=== PATIENT | male | born 1965 | race Caucasian/White ===

== ENCOUNTER 2017-07-20 13:01 | Emergency (ER) | payer OTHER ==
[~2017-07-20] VITALS: Ht 177.8 cm; Wt 96.0 kg
[2017-07-20 13:17] VITALS: Ht 177.8 cm; Wt 96.0 kg
[2017-07-20] MEDS ORDERED: KETOROLAC 15 MG INJ IV STA (13:49)
[2017-07-20] MEDS ORDERED: ONDANSETRON 4 MG INJ IV STA (13:49)
[2017-07-20] MEDS ORDERED: SOD CHLORIDE 0.9% 1,000 ML IV STA (13:49)
[2017-07-20] MEDS ORDERED: PROPOFOL 100 ML IV ONE (14:00)
[2017-07-20] MEDS ORDERED: FENTAnyl 50 MCG/ML VIAL IV ONE (14:00)
[2017-07-20] MEDS ORDERED: NEOMYC/POLYMYX/BACIT 30 GM OINT TOP ONE (14:00)
[2017-07-20] MEDS ORDERED: LIDOCAINE 1% (MDV) 20 ML INJ SC ONE (14:00)
[2017-07-20 14:07] LABS: BASOPHILS % 0.4 % (0.0-2.0); EOSINOPHILS # 0.1 10^3/ul (0.0-0.5); HEMATOCRIT 46.9 % (42.0-52.0); HEMOGLOBIN 15.5 g/dl (14.0-18.0); LYMPHOCYTES # 2.1 10^3/ul (0.8-2.9); MEAN CORPUSCULAR HEMOGLOBIN 30.6 pg (29.0-33.0); MEAN CORPUSCULAR VOLUME 92.7 fl (82.0-101.0); MEAN PLATELET VOLUME 10.2 fl (7.4-10.4); MONOCYTE # 0.6 10^3/ul (0.3-0.9); MONOCYTES % 5.7 % (0.0-11.0); NEUTROPHIL # 7.2 10^3/ul (1.6-7.5); NEUTROPHILS % 71.6 % (39.0-77.0); PLATELET COUNT 210 10^3/UL (140-415); RED BLOOD COUNT 5.06 10^6/ul (4.70-6.10); RED CELL DISTRIBUTION WIDTH 12.6 % (11.5-14.5)
[2017-07-20 14:29] LABS: INR 0.85; PROTIME 11.6 Sec (12.2-14.2); PT RATIO 0.9
[2017-07-20 14:32] LABS: CALCIUM 9.1 mg/dl (8.4-10.2); CREATININE 0.98 mg/dl (0.61-1.24); POTASSIUM 4.5 mmol/L (3.5-5.1)
--- NOTE | 2017-07-20 14:58 | RADRPT ---
PROCEDURE: XR Wrist. CLINICAL INDICATION: Fall TECHNIQUE: AP, lateral and oblique views of the left wrist were performed. COMPARISON: No prior studies are available for comparison. FINDINGS: There are comminuted fractures of the distal radius and ulna noting volar angulation and displacemen t of the distal fragments. Also mild radial angulation of the distal ulnar fragment. The carpal bone s otherwise appear well-aligned with the radius and appear within normal limits. There is marked sof t tissue swelling. IMPRESSION: 1. Distal radial and ulnar fractures, as above. RPTAT: UU .Mark Blake MD, MD Date Time Electronically viewed and signed by .Mark Blake MD, MD on 07/20/2017 14:58 .d/
[2017-07-20] MEDS ORDERED: OXYC-279 PO (15:59)
[2017-07-20] MEDS ORDERED: IBUP-1542 PO (15:59)
[2017-07-20] MEDS ORDERED: CEPH-443 PO (15:59)
[2017-07-20 16:39] VITALS: BP 120/68; PULSE 78; RESP 18; TEMP 98.1
--- NOTE | 2017-07-20 16:55 | RADRPT ---
PROCEDURE: XR Wrist. CLINICAL INDICATION: Reduction TECHNIQUE: AP, lateral and oblique views of the left wrist were performed. COMPARISON: Radiographs of the same day FINDINGS: There has been interval placement of an overlying cast. There is improved alignment of the distal ul na noting mild volar residual angulation. There is persistent volar displacement and angulation of t he distal radial fragment by a shaft's width. The carpal bones are well-aligned with the distal radi al articular surface. IMPRESSION: 1. Persistently volarly displaced distal radial fracture fragment. 2. Improved alignment of the distal ulna. 3. Overlying cast obscures osseous detail. RPTAT: UU .Mark Blake MD, Date Time Electronically viewed and signed by .Mark Blake MD, on 07/20/2017 16:55 .d/
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
== END 2017-07-20 16:40 | disposition home or self-care (01) ==
LOC: E/R 13:01
DX: S52.611A Displaced fracture of right ulna styloid process, initial encounter for closed fracture (principal); R07.9 Chest pain, unspecified; V00.831A Fall from motorized mobility scooter, initial encounter
CPT/HCPCS: 25565; 36415; 73110; 80048; 85025; 85610; 94770; 96374; 96375; J1885; J2405; J3010; J7030; Z7502; Z7610

== ENCOUNTER 2017-08-01 12:59 | Day surgery (SDC) | payer OTHER ==
[~2017-08-01] VITALS: Ht 180.3 cm; Wt 95.0 kg
[~2017-08-01 12:59] MED LIST: CEPH-443 PO; IBUP-1542 PO; OXYC-279 PO
[2017-08-01 15:42] VITALS: Ht 180.3 cm; Wt 95.0 kg
[2017-08-01 15:49] VITALS: BP 124/84; PULSE 102; RESP 20
[2017-08-01 16:12] LABS: BASOPHILS % 0.4 % (0.0-2.0); EOSINOPHILS # 0.1 10^3/ul (0.0-0.5); EOSINOPHILS % 0.9 % (0.0-7.0); HEMOGLOBIN 14.6 g/dl (14.0-18.0); LYMPHOCYTES # 2.2 10^3/ul (0.8-2.9); LYMPHOCYTES % 22.7 % (15.0-51.0); MEAN CORPUSCULAR HEMOGLOBIN 30.7 pg (29.0-33.0); MEAN CORPUSCULAR VOLUME 90.5 fl (82.0-101.0); MEAN PLATELET VOLUME 9.9 fl (7.4-10.4); MONOCYTE # 0.6 10^3/ul (0.3-0.9); MONOCYTES % 6.1 % (0.0-11.0); NEUTROPHIL # 6.7 10^3/ul (1.6-7.5); NEUTROPHILS % 69.6 % (39.0-77.0); PLATELET COUNT 306 10^3/UL (140-415); RED BLOOD COUNT 4.75 10^6/ul (4.70-6.10); RED CELL DISTRIBUTION WIDTH 12.5 % (11.5-14.5); WHITE BLOOD COUNT 9.6 10^3/ul (4.8-10.8)
--- NOTE | 2017-08-02 22:41 | RADRPT ---
Vent Rate: 88 bpm RR Interval: 0 msec FL Interval: 148 msec QRS Duration: 94 msec QT Interval: 400 msec QTC Interval: 484 msec P-R-T Buhl: 58 - -61 - 41 degrees Normal sinus rhythm Left anterior fascicular block Septal infarct , age undetermined Abnormal ECG Electronically Signed By: Paul Linda [id number]
[2017-08-03] MEDS ORDERED: FENTAnyl 50 MCG/ML VIAL ONE (13:17)
[2017-08-03] MEDS ORDERED: MIDAZOLAM 1 MG/ML 2 ML INJ ONE (13:17)
[2017-08-03] MEDS ORDERED: PROPOFOL 20 ML ONE (13:17)
[2017-08-03] MEDS ORDERED: LIDOCAINE 2% (SDV) 5 ML INJ ONE (13:17)
[2017-08-03] MEDS ORDERED: ROPIVACAINE 0.5 % 30 ML VIAL ONE (13:20)
[2017-08-03] MEDS ORDERED: ACETAMINOPHEN 1000MG/100ML IV 100 ML ONE (16:49)
[2017-08-03] MEDS ORDERED: CEFAZOLIN 1 GM INJ ONE (16:49)
[2017-08-03] MEDS ORDERED: PHENYLephrine (100 MCG/ML) 5ML SYG ONE (17:06)
[2017-08-03] MEDS ORDERED: EPHEDrine SULFATE 50 MG/5 ML SYG ONE (17:11)
[2017-08-03] MEDS ORDERED: ONDANSETRON 4 MG INJ ONE (17:27)
[2017-08-03] MEDS ORDERED: METOCLOPRAMIDE 10 MG INJ ONE (17:27)
[2017-08-03] MEDS ORDERED: KETOROLAC 30 MG INJ ONE (18:07)
[2017-08-03] MEDS ORDERED: HYDROmorphONE 2 MG/ML SYG ONE (18:27)
== END 2017-08-01 16:47 | disposition home or self-care (01) ==
LOC: SDS 12:59
PROVIDERS: ATTEND Orthopaedic Surgery Hand Surgery
DX: S52.502A Unspecified fracture of the lower end of left radius, initial encounter for closed fracture (principal); Z53.9 Procedure and treatment not carried out, unspecified reason; X58.XXXA Exposure to other specified factors, initial encounter; Y93.9 Activity, unspecified; Y99.9 Unspecified external cause status; Y92.9 Unspecified place or not applicable
CPT/HCPCS: 85025; 93005

== ENCOUNTER 2017-08-03 12:56 | Day surgery (SDC) | payer OTHER ==
[~2017-08-03] VITALS: Ht 179.1 cm; Wt 95.8 kg
[2017-08-03] VITALS (16 sets, daily range): BP systolic 102–121; BP diastolic 56–77; PULSE 86–99; RESP 16–18; Ht 179.1 cm; Wt 95.8 kg
[2017-08-03] MEDS ORDERED: FENTAnyl 50 MCG/ML VIAL IV PRN (13:30)
[2017-08-03] MEDS ORDERED: ONDANSETRON 4 MG INJ IV PRN (13:30)
[2017-08-03] MEDS ORDERED: OXYCODONE/ACETAMINOPHEN (5/325) TAB PO PRN ×2 (13:30)
[2017-08-03] MEDS ORDERED: HYDROmorphONE (0.2 MG/ML) 10ML SYG IV PRN ×2 (13:30)
[2017-08-03] MEDS ORDERED: DIPHENHYDRAMINE 50 MG INJ IV PRN (13:30)
[2017-08-03] MEDS ORDERED: MEPERIDINE 25 MG INJ IV PRN (13:30)
[2017-08-03] MEDS ORDERED: PROCHLORPERAZINE 10 MG INJ IV PRN (13:30)
--- NOTE | 2017-08-03 15:39 | RADRPT ---
PROCEDURE: XR Chest. CLINICAL INDICATION: Preoperative. TECHNIQUE: Single frontal view. COMPARISON: None. FINDINGS: The lungs are clear. The heart size is normal. There is no pleural effusion. There is no pneumothorax. IMPRESSION: 1. Normal chest radiograph. RPTAT: QQ .Sumeet Álvarez MD, Date Time Electronically viewed and signed by .Sumeet Álvarez MD, on 08/03/2017 15:39 .R/
--- NOTE | 2017-08-03 16:08 | HPN ---
Date/Time of Note Date/Time of Note DATE: 08/03/17 TIME: 16:08 Interval H&P Admission Note Pt. seen H&P reviewed: No system changes ZANDRA AREVALO MD Aug 03, 2017 16:08
[2017-08-03] MEDS ORDERED: BUPIVACAINE 0.5%/EPI (SDV) 30 ML INJ ONE (16:11)
[2017-08-03] MEDS ORDERED: BUPIVACAINE 0.25% (MPF) 30 ML INJ ONE (16:11)
--- NOTE | 2017-08-03 16:11 | SIPON ---
Date/Time of Note Date/Time of Note DATE: 08/03/17 TIME: 16:09 Operative Report Preoperative Diagnosis left distal radius and ulnar fractures Postoperative Diagnosis same Operation/Procedure Performed orif left distal radius and ulna fractures Surgeon jo assistant hall director staff Anesthesia: general Estimated blood loss: minimal Transfusion Required none Specimen none Grafts/Implants none Complications none ZANDRA AREVALO MD Aug 03, 2017 16:11
--- NOTE | 2017-08-03 16:11 | SIPON ---
Date/Time of Note Date/Time of Note DATE: 08/03/17 TIME: 16:09 Operative Report Preoperative Diagnosis left distal radius and ulnar fractures Postoperative Diagnosis same Operation/Procedure Performed orif left distal radius and ulna fractures Surgeon jo assistant store manager sales staff Anesthesia: general Estimated blood loss: minimal Transfusion Required none Specimen none Grafts/Implants none Complications none ZANDRA AREVALO MD Aug 03, 2017 16:11
--- NOTE | 2017-08-03 16:11 | SIPON ---
Date/Time of Note Date/Time of Note DATE: 08/03/17 TIME: 16:09 Operative Report Preoperative Diagnosis left distal radius and ulnar fractures Postoperative Diagnosis same Operation/Procedure Performed orif left distal radius and ulna fractures Surgeon jo clothing sales assistant staff Anesthesia: general Estimated blood loss: minimal Transfusion Required none Specimen none Grafts/Implants none Complications none ZANDRA AREVALO MD Aug 03, 2017 16:11
[2017-08-03] MEDS ORDERED: POLYMYXIN/BACITRACIN 1L IRRIG ONE (17:14)
--- NOTE | 2017-08-03 22:08 | RADRPT ---
PROCEDURE: Intraoperative imaging of the left wrist with fluoroscopy. CLINICAL INDICATION: Left wrist pain. Intraoperative. TECHNIQUE: 15 images of the left wrist were obtained in the operating room with an image intensifi er. No radiologist was in attendance. Fluoroscopy time is 36 seconds. COMPARISON: Left wrist radiographs dated 07/20/2017. FINDINGS: Images demonstrate open reduction and internal fixation of the distal radius with a plate and multip le screws. There is also open reduction and internal fixation of the distal ulna with a plate and mu ltiple screws. IMPRESSION: 1. Intraoperative imaging of the left wrist. RPTAT: QQ .Sumeet Álvarez MD, MD Date Time Electronically viewed and signed by .Sumeet Álvarez MD, MD on 08/03/2017 22:08 .R/
--- NOTE | 2017-08-04 08:36 | OPR ---
DATE OF OPERATION: 08/03/2017 SURGEON: Terry Diaz MD PRODUCT DIRECTOR: Staff. ANESTHESIOLOGIST: Dr. Floyd ANESTHESIA: General anesthetic by the anesthesiologist, supraclavicular block by the anesthesiologist, local anesthetic by the surgeon. SURGICAL PAUSE: I reexamined the patient in the holding area, son present as witness, marked the site, confirmed the operative procedure and plan with the patient awake. INFORMED CONSENT: At the time we scheduled the operative procedure we talked to the patient about the risks and the hazards of surgery, discussing the operative mortality, wound infection, nerve injury, good result, potential complications. The patient signed the note in [place], we do not have it in Farsi, documenting that conversation. We had a family member as the bisque cleaner. Of special concern, this patient's hand was really dirty when he took the preop dressing off and we had to scrub him to get him reasonably clean. We did an extra challenging preop scrub to get him safely clean. INDICATIONS FOR THE SURGERY: The patient had a somewhat untypical injury in that he had a so-called volar Carrillo's fracture subluxed of course, of which they all do, AO classification b2 plus a distal ulnar fracture at the level of maybe 1 inch proximal to the distal end of the ulna, somewhat unusual location, more proximal with his typical, more than a simple ulnar styloid fracture. Plan: Open reduction and internal fixation of both fractures. OPERATIVE PROCEDURE: The patient taken to surgery, anesthetized as above. Sterile prep and drape performed. A standard volar flexor carpi radialis approach was made to the distal radius, pronator quad radius incised and retracted brachial radialis released. The fracture manipulated in a reduced position and held with temporary k wires. A volar fixed angle plate from [employer] which uses a Star screwdriver was applied in the standard manner, getting what appears to be a near anatomic reduction of the distal radius. No metal into the joint, no metal into the radial carpal joint, no metal into the sigmoid notch. Appropriate holiness of length. Appropriate holiness of the inclination and holiness of tilt. Subsequently that wound was closed in layers with Vicryl deep and subcuticular. Part 2: The distal ulna. We subperiosteally exposed the distal ulna through a mid ulnar approach on the side to the ulna, exposed the fracture. The best device we had available to fix the ulna was from the synthes modular hand set, the modular hand set. It was the one that seemed to fit better than anything else, it is probably a little light, somebody will probably criticize these for having a somewhat small plate but it is the one that fit the area best. We cut it to length, bent it to shape and applied it with 3 screws distally and 3 screws proximally, getting a rigid fixation of the distal ulna. Metal removal: We probably do not have to remove more than 1 in 10 of the distal radius plates; however, fixation of ulna often is irritating and we probably have to remove 65 to 70% of those. The operative time was about 1.5 hours. DISCHARGE MEDICATIONS: Hydrocodone, acetaminophen and Keflex. FOLLOWUP: Followup will be in our office in a week. We will keep him immobilized in a splint about 4 weeks and then start him on exercises. Dictated By: Terry Diaz MD /simona/javy /Document#: [id number] SHAUNA
--- NOTE | 2017-08-04 08:36 | OPR ---
DATE OF OPERATION: 08/03/2017 SURGEON: Terry Diaz MD BILL ADJUSTER: Staff. ANESTHESIOLOGIST: Dr. Floyd ANESTHESIA: General anesthetic by the anesthesiologist, supraclavicular block by the anesthesiologist, local anesthetic by the surgeon. SURGICAL PAUSE: I reexamined the patient in the holding area, son present as witness, marked the site, confirmed the operative procedure and plan with the patient awake. INFORMED CONSENT: At the time we scheduled the operative procedure we talked to the patient about the risks and the hazards of surgery, discussing the operative mortality, wound infection, nerve injury, good result, potential complications. The patient signed the note in [place], we do not have it in Farsi, documenting that conversation. We had a family member as the laborer hoisting. Of special concern, this patient's hand was really dirty when he took the preop dressing off and we had to scrub him to get him reasonably clean. We did an extra challenging preop scrub to get him safely clean. INDICATIONS FOR THE SURGERY: The patient had a somewhat untypical injury in that he had a so-called volar Carrillo's fracture subluxed of course, of which they all do, AO classification b2 plus a distal ulnar fracture at the level of maybe 1 inch proximal to the distal end of the ulna, somewhat unusual location, more proximal with his typical, more than a simple ulnar styloid fracture. Plan: Open reduction and internal fixation of both fractures. OPERATIVE PROCEDURE: The patient taken to surgery, anesthetized as above. Sterile prep and drape performed. A standard volar flexor carpi radialis approach was made to the distal radius, pronator quad radius incised and retracted brachial radialis released. The fracture manipulated in a reduced position and held with temporary k wires. A volar fixed angle plate from [employer] which uses a Star screwdriver was applied in the standard manner, getting what appears to be a near anatomic reduction of the distal radius. No metal into the joint, no metal into the radial carpal joint, no metal into the sigmoid notch. Appropriate christian of length. Appropriate christian of the inclination and christian of tilt. Subsequently that wound was closed in layers with Vicryl deep and subcuticular. Part 2: The distal ulna. We subperiosteally exposed the distal ulna through a mid ulnar approach on the side to the ulna, exposed the fracture. The best device we had available to fix the ulna was from the synthes modular hand set, the modular hand set. It was the one that seemed to fit better than anything else, it is probably a little light, somebody will probably criticize these for having a somewhat small plate but it is the one that fit the area best. We cut it to length, bent it to shape and applied it with 3 screws distally and 3 screws proximally, getting a rigid fixation of the distal ulna. Metal removal: We probably do not have to remove more than 1 in 10 of the distal radius plates; however, fixation of ulna often is irritating and we probably have to remove 65 to 70% of those. The operative time was about 1.5 hours. DISCHARGE MEDICATIONS: Hydrocodone, acetaminophen and Keflex. FOLLOWUP: Followup will be in our office in a week. We will keep him immobilized in a splint about 4 weeks and then start him on exercises. Dictated By: Terry Diaz MD /simona/javy /Document#: [id number] SHAUNA
--- NOTE | 2017-08-04 08:36 | OPR ---
DATE OF OPERATION: 08/03/2017 SURGEON: Terry Diaz MD ACCOUNT RESOLUTION EXPERT: Staff. ANESTHESIOLOGIST: Dr. Floyd ANESTHESIA: General anesthetic by the anesthesiologist, supraclavicular block by the anesthesiologist, local anesthetic by the surgeon. SURGICAL PAUSE: I reexamined the patient in the holding area, son present as witness, marked the site, confirmed the operative procedure and plan with the patient awake. INFORMED CONSENT: At the time we scheduled the operative procedure we talked to the patient about the risks and the hazards of surgery, discussing the operative mortality, wound infection, nerve injury, good result, potential complications. The patient signed the note in [place], we do not have it in Farsi, documenting that conversation. We had a family member as the aligning inspector. Of special concern, this patient's hand was really dirty when he took the preop dressing off and we had to scrub him to get him reasonably clean. We did an extra challenging preop scrub to get him safely clean. INDICATIONS FOR THE SURGERY: The patient had a somewhat untypical injury in that he had a so-called volar Carrillo's fracture subluxed of course, of which they all do, AO classification b2 plus a distal ulnar fracture at the level of maybe 1 inch proximal to the distal end of the ulna, somewhat unusual location, more proximal with his typical, more than a simple ulnar styloid fracture. Plan: Open reduction and internal fixation of both fractures. OPERATIVE PROCEDURE: The patient taken to surgery, anesthetized as above. Sterile prep and drape performed. A standard volar flexor carpi radialis approach was made to the distal radius, pronator quad radius incised and retracted brachial radialis released. The fracture manipulated in a reduced position and held with temporary k wires. A volar fixed angle plate from [employer] which uses a Star screwdriver was applied in the standard manner, getting what appears to be a near anatomic reduction of the distal radius. No metal into the joint, no metal into the radial carpal joint, no metal into the sigmoid notch. Appropriate taoist of length. Appropriate taoist of the inclination and taoist of tilt. Subsequently that wound was closed in layers with Vicryl deep and subcuticular. Part 2: The distal ulna. We subperiosteally exposed the distal ulna through a mid ulnar approach on the side to the ulna, exposed the fracture. The best device we had available to fix the ulna was from the synthes modular hand set, the modular hand set. It was the one that seemed to fit better than anything else, it is probably a little light, somebody will probably criticize these for having a somewhat small plate but it is the one that fit the area best. We cut it to length, bent it to shape and applied it with 3 screws distally and 3 screws proximally, getting a rigid fixation of the distal ulna. Metal removal: We probably do not have to remove more than 1 in 10 of the distal radius plates; however, fixation of ulna often is irritating and we probably have to remove 65 to 70% of those. The operative time was about 1.5 hours. DISCHARGE MEDICATIONS: Hydrocodone, acetaminophen and Keflex. FOLLOWUP: Followup will be in our office in a week. We will keep him immobilized in a splint about 4 weeks and then start him on exercises. Dictated By: Terry Diaz MD /simona/javy /Document#: [id number] SHAUNA
[2017-08-04] MEDS ORDERED: CEPH250C PO (17:27)
[2017-08-04] MEDS ORDERED: OXYC-279 PO (17:27)
[2017-08-04] MEDS ORDERED: HYDR-906 PO (17:27)
== END 2017-08-03 20:35 | disposition home or self-care (01) ==
LOC: SDS 12:56
PROVIDERS: ATTEND Orthopaedic Surgery Hand Surgery
DX: S52.502A Unspecified fracture of the lower end of left radius, initial encounter for closed fracture (principal); S52.602A Unspecified fracture of lower end of left ulna, initial encounter for closed fracture; X58.XXXA Exposure to other specified factors, initial encounter; Y93.89 Activity, other specified; Y92.89 Other specified places as the place of occurrence of the external cause; Y99.8 Other external cause status
CPT/HCPCS: 25609; 25652; 71010; 73110; 81001; C1713; J0131; J0690; J1170; J1885; J2250; J2370; J2405; J2765; J2795; J3010; Z7512; Z7610

== ENCOUNTER 2017-08-04 15:48 | Emergency (ER) | payer OTHER ==
[~2017-08-04] VITALS: Ht 177.8 cm; Wt 85.0 kg
[2017-08-04 15:51] VITALS: Ht 177.8 cm; Wt 85.0 kg
[2017-08-04] MEDS ORDERED: SOD CHLORIDE 0.9% 1,000 ML IV STA (16:19)
[2017-08-04] MEDS ORDERED: ONDANSETRON 4 MG INJ IV STA (16:19)
[2017-08-04] MEDS ORDERED: HYDROmorphONE 1 MG/ML SYG IV STA (16:19)
[2017-08-04 16:30] LABS: BASOPHILS % 0.2 % (0.0-2.0); EOSINOPHILS # 0.1 10^3/ul (0.0-0.5); EOSINOPHILS % 0.9 % (0.0-7.0); HEMATOCRIT 39.8 % (42.0-52.0); HEMOGLOBIN 13.3 g/dl (14.0-18.0); LYMPHOCYTES # 1.8 10^3/ul (0.8-2.9); LYMPHOCYTES % 15.7 % (15.0-51.0); MEAN CORPUSCULAR HEMOGLOBIN 30.5 pg (29.0-33.0); MEAN CORPUSCULAR HGB CONC 33.4 g/dl (32.0-37.0); MEAN CORPUSCULAR VOLUME 91.3 fl (82.0-101.0); MEAN PLATELET VOLUME 9.9 fl (7.4-10.4); MONOCYTE # 0.9 10^3/ul (0.3-0.9); MONOCYTES % 7.5 % (0.0-11.0); NEUTROPHIL # 8.7 10^3/ul (1.6-7.5); NEUTROPHILS % 75.4 % (39.0-77.0); PLATELET COUNT 296 10^3/UL (140-415); RED BLOOD COUNT 4.36 10^6/ul (4.70-6.10); RED CELL DISTRIBUTION WIDTH 12.5 % (11.5-14.5); WHITE BLOOD COUNT 11.6 10^3/ul (4.8-10.8)
[2017-08-04 16:50] LABS: INR 0.83; PROTIME 11.4 Sec (12.2-14.2); PT RATIO 0.9
[2017-08-04 16:52] LABS: CALCIUM 8.7 mg/dl (8.4-10.2); CREATININE 0.9 mg/dl (0.61-1.24); POTASSIUM 3.5 mmol/L (3.5-5.1)
[2017-08-04] MEDS ORDERED: CEPH250C PO (17:27)
[2017-08-04] MEDS ORDERED: OXYC-279 PO (17:27)
[2017-08-04] MEDS ORDERED: HYDR-906 PO (17:27)
[2017-08-04 17:57] VITALS: BP 148/75; PULSE 71; RESP 20
--- NOTE | 2017-08-05 22:59 | ERD ---
ER Documentation Chief Complaint Chief Complaint left hand swelling and increased pain s/p wrist surgery yesterday HPI 52-year-old man complains of postop pain to the left upper extremity status post ORIF due to a volar Carrillo's fracture of the left radius and distal left ulna fracture. Patient has been using his oral analgesics at home with some relief but feels his splint is "too tight". He denies paresis or paresthesias, no chest pain or shortness of breath, no vomiting ROS All systems reviewed and are negative except as per history of present illness. Medications Home Meds Reported Medications Hydrocodone/Acetaminophen ([place] 5-325 Tablet) 1 Each Tablet, 1 EACH PO Q4H, TAB 08/04/17 Cephalexin* (Cephalexin*) 250 Mg Capsule, 250 MG PO Q6, #28 CAP 08/04/17 Oxycodone HCl/Acetaminophen (Percocet 5-325 mg Tablet) 1 Each Tablet, 1 EACH PO TID, TAB 08/04/17 Discontinued Scripts Oxycodone HCl/Acetaminophen (Percocet 5-325 mg Tablet) 1 Each Tablet, 1 EACH PO TID for PAIN LEVEL 6-10, #15 TAB Prov:SHOBHA PAYTON MD 07/20/17 Cephalexin* (Keflex*) 500 Mg Capsule, 500 MG PO TID for 5 Days, CAP Prov:SHOBHA PAYTON MD 07/20/17 Ibuprofen* (Ibuprofen*) 600 Mg Tablet, 600 MG PO Q8 for PAIN AND/OR INFLAMMATION , #30 TAB Prov:SHOBHA PAYTON MD 07/20/17 Allergies Allergies: Coded Allergies: No Known Allergy (Unverified , 08/04/17) PMhx/Soc None History of Surgery: No Anesthesia Reaction: No Hx Neurological Disorder: No Hx Respiratory Disorders: No Hx Cardiac Disorders: No Hx Psychiatric Problems: No Hx Miscellaneous Medical Probl: No Hx Alcohol Use: No Hx Substance Use: No Hx Tobacco Use: Yes (08/02) Smoking Status: Smoker,current status unk FmHx Family History: No diabetes Physical Exam Vitals Per nurses records Physical Exam GENERAL: Well-developed, well-nourished, well-hydrated, in no apparent distress , looks nontoxic in appearance HEENT: Moist mucous membranes, pink conjunctiva, no cervical spine tenderness or step-off deformities, no goiter, no jaundice or icterus, extraocular movements intact without pain. No submandibular induration, and no pharyngeal erythema NEURO: Alert and oriented 3, cranial nerves II through XII intact bilaterally, pupils equal round reactive to light, no focal deficits or facial asymmetry, sensation intact distally Strength 5/5 in upper and lower extremities bilaterally CARDIAC: Regular rate and rhythm, no murmurs rubs or gallops LUNGS: Clear bilaterally no wheezing crackles or stridor ABDOMEN: Soft nontender, no guarding, no rigidity, no rebound, no psoas sign no obturator sign. Normoactive bowel sounds SKIN: Warm and dry to touch, left upper extremity postoperative mild ecchymosis at the wrist no skin induration or erythema noted EXTREMITIES: Postoperative swelling to the left hand and left arm, sutures are in place at the left wrist with no gross wound dehiscence or discharge, distal pulses equal bilateral, cap refill less than 2 seconds PSYCH: Normal affect without agitation or irritability Result Diagram: 08/04/17 1620 08/04/17 1620 Results 24 hrs Laboratory Tests Test 08/04/17 16:20 White Blood Count 11.610^3/ul Red Blood Count 4.3610^6/ul Hemoglobin 13.3g/dl Hematocrit 39.8% Mean Corpuscular Volume 91.3fl Mean Corpuscular Hemoglobin 30.5pg Mean Corpuscular Hemoglobin Concent 33.4g/dl Red Cell Distribution Width 12.5% Platelet Count 87081^3/UL Mean Platelet Volume 9.9fl Neutrophils % 75.4% Lymphocytes % 15.7% Monocytes % 7.5% Eosinophils % 0.9% Basophils % 0.2% Nucleated Red Blood Cells % 0.0/100WBC Neutrophils # 8.710^3/ul Lymphocytes # 1.810^3/ul Monocytes # 0.910^3/ul Eosinophils # 0.110^3/ul Basophils # 0.010^3/ul Nucleated Red Blood Cells # 0.010^3/ul Prothrombin Time 11.4Sec Prothrombin Time Ratio 0.9 INR International Normalized Ratio 0.83 Sodium Level 138mmol/L Potassium Level 3.5mmol/L Chloride Level 101mmol/L Carbon Dioxide Level 29mmol/L Anion Gap 12 Blood Urea Nitrogen 12mg/dl Creatinine 0.90mg/dl Glucose Level 131mg/dl Calcium Level 8.7mg/dl Current Medications Medications (Trade) Dose Ordered Sig/Brionna Route PRN Reason Start Time Stop Time Status Last Admin Dose Admin Sodium Chloride (NS) 1,000 ml @ 1,000 mls/hr Q1H STAT IV 08/04/17 16:19 08/04/17 17:18 DC 08/04/17 16:28 Hydromorphone HCl (Dilaudid) 1 mg ONCE STAT IV 08/04/17 16:19 08/04/17 16:21 DC 08/04/17 16:28 Ondansetron HCl (Zofran Inj) 4 mg ONCE STAT IV 08/04/17 16:19 08/04/17 16:21 DC 08/04/17 16:28 Procedures/MDM IV line was established patient placed on cardiac catheterization technician rhythm strip revealed a sinus rhythm at about 80 bpm. Patient was afebrile. I administered 1 L normal saline intravenously, hydromorphone 1 mg IV, Zofran 4 mg IV with good effect. CBC and electrolytes were normal. Consultation with the patient's orthopedic surgeon Dr. Cummins was obtained, I spoke to him regarding the patient's symptoms and physical exam findings he recommended continued outpatient management and close follow-up with him, he is scheduled to see him in the next few days, and recommended I replace the splint , which I did. Left upper extremity wrist splint was placed for comfort and supportive measures post-ORIF. Splint Assessment: Neurovascularly intact post splint placement with good fit. Patient feels much better at this time, and vital signs are normal, symptoms have improved. I did give strict instructions to return to the ED if symptoms continue or worsen, patient will otherwise follow-up with primary care physician. Patient understood instructions and agreed to plan. Disclaimer: Inadvertent spelling and grammatical errors are likely due to EHR/ dictation software use and do not reflect on the overall quality of patient care. Also, please note that the electronic time recorded on this note does not necessarily reflect the actual time of the patient encounter. Departure Diagnosis: Primary Impression: Post-op pain Additional Impressions: Contusion of soft tissue Radius/ulna fracture Encounter type: initial encounter Fracture type: open Open fracture type: open type III Laterality: left Qualified Code: S52.92XC - Type III open fracture of left radius and ulna, initial encounter Condition: Good Patient Instructions: Post Op Wound Check, Pain SHOBHA PAYTON MD Aug 05, 2017 22:59
== END 2017-08-04 17:58 | disposition home or self-care (01) ==
LOC: E/R 15:48
DX: G89.18 Other acute postprocedural pain (principal); S52.92 Unspecified fracture of left forearm; F17.210 Nicotine dependence, cigarettes, uncomplicated; X58.XXXA Exposure to other specified factors, initial encounter; Y92.9 Unspecified place or not applicable
CPT/HCPCS: 80048; 85025; 85610; 96374; 96375; J1170; J2405; J7030; Z7502

== ENCOUNTER 2019-01-24 16:09 | Emergency (ER) | payer OTHER ==
[~2019-01-24] VITALS: Ht 180.3 cm; Wt 95.5 kg
[~2019-01-24 16:09] MED LIST changes: -CEPH-443 PO; +CEPH250C PO; +HYDR-4011 PO; -IBUP-1542 PO
[2019-01-24 16:16] VITALS: BP 138/68; PULSE 105; RESP 22; Ht 180.3 cm; Wt 95.5 kg
[2019-01-24] MEDS ORDERED: IBUP800T48 PO (18:09)
--- NOTE | 2019-01-24 18:14 | ERD ---
ER Documentation Chief Complaint Chief Complaint LEFT LEG PAIN/SWELLING HPI 53-year-old male presents with left knee pain that he states he has had for 4-5 days. He denies any trauma. He is pain is worse with walking but he is able to ambulate. He also states his left leg is swollen. Denies any recent travel. N o chest pain palpitations or shortness of breath. No fever. ROS All systems reviewed and are negative except as per history of present illness. Medications Home Meds Active Scripts Ibuprofen* (Motrin*) 800 Mg Tab, 800 MG PO Q6, #30 TAB Prov:VIJI ESQUIVEL PA-C 01/24/19 Reported Medications Hydrocodone/Acetaminophen ([place] 5-325 Tablet) 1 Each Tablet, 1 EACH PO Q4H, TAB 08/04/17 Cephalexin* (Cephalexin*) 250 Mg Capsule, 250 MG PO Q6, #28 CAP 08/04/17 Oxycodone HCl/Acetaminophen (Percocet 5-325 mg Tablet) 1 Each Tablet, 1 EACH PO TID, TAB 08/04/17 Allergies Allergies: Coded Allergies: No Known Allergy (Unverified , 08/04/17) PMhx/Soc History of Surgery: Yes (07/2017 hand/wrist sx) Anesthesia Reaction: No Hx Neurological Disorder: No Hx Respiratory Disorders: No Hx Cardiac Disorders: No Hx Psychiatric Problems: No Hx Miscellaneous Medical Probl: No Hx Alcohol Use: No Hx Substance Use: No Hx Tobacco Use: Yes Smoking Status: Current every day smoker FmHx Family History: No diabetes Physical Exam Vitals Vital Signs Date Temp Pulse Resp B/P (MAP) Pulse Ox O2 O2 Flow FiO2 Time Delivery Rate 01/24/19 98.5 105 22 138/68 98 16:16 (91) Physical Exam Const: No acute distress Head: Atraumatic Eyes: Normal Conjunctiva ENT: Normal External Ears, Nose and Mouth. Neck: Full range of motion. No meningismus. Resp: Clear to auscultation bilaterally Cardio: Regular rate and rhythm, no murmurs Lower Extremity -left: Skin: No laceration Motor: Full active range of motion hip/knee/ankle/foot Sensation: Intact to light touch FDWS/MF/LF/P surfaces. Bones: Nontender pelvis/knee/proximal tibia/ malleoli/foot Joints: Left lower extremity edema compared to right from the knee down no erythema or warmth Pulses/Perfusion: 2+ DP, Capillary refill < 2 seconds Procedures/MDM Patient has knee pain and left lower extremity edema. His ultrasound is negative for DVT. X-ray of his knee is negative. Declined pain medications here but I discharged him with ibuprofen. He declined crutches. He is ambulatory neurovascular intact. Patient counseled regarding my diagnostic impression and care plan. Prior to discharge all questions answered. Pt agrees with treatment plan and understands strict return precautions. Pt is instructed to follow up with primary care provider within 24-48 hours. Precautionary instructions provided including instructions to return to the ER if not improving or for any worsening or changing symptoms or concerns. Departure Diagnosis: Primary Impression: Pain of left leg Condition: Stable Patient Instructions: Myalgias Additional Instructions: Call your primary care doctor TOMORROW for an appointment during the next 1-2 days.See the doctor sooner or return here if your condition worsens before your appointment time. VIJI ESQUIVEL PA-C Jan 24, 2019 18:14
== END 2019-01-24 18:20 | disposition home or self-care (01) ==
LOC: FTE 16:09
DX: M79.605 Pain in left leg (principal); F17.210 Nicotine dependence, cigarettes, uncomplicated
CPT/HCPCS: 73562; 93971; Z7502